=== PATIENT | female | born 1980 | race Caucasian/White ===

== ENCOUNTER 2017-06-20 11:28 | Outpatient (CLI) | payer OTHER ==
--- NOTE | 2017-06-20 14:02 | ULT ---
GALLBLADDER ULTRASOUND: Date: 06/20/17 HISTORY: Right upper quadrant pain. COMPARISON: None. TECHNIQUE: Utilizing a multihertz transducer, sonographic imaging of the right upper quadrant is performed in th e longitudinal and transverse plane. FINDINGS: Hepatic parenchyma has a normal echotexture. No hepatic masses or intrahepatic biliary dilatation. Co ntour of the hepatic margin is maintained. Right hepatic lobe measures 14.4 cm. Main portal vein is patent. Appropriate direction of flow. Common bile duct diameter is 0.2 cm. Within the lumen of the gallbladder, there are extensive echogenic foci with shadowing compatible wit h multiple gallstones. Gallbladder wall is thickened, measuring 0.5 cm. Negative Blue's sign. No si gnificant pericholecystic fluid. Right kidney has a normal cortical echotexture. No hydronephrosis. Right kidney measures 4.5 x 4.0 x 10.3 cm. IMPRESSION: Sonographic evidence of cholelithiasis with findings that are equivocal for cholecystitis. Gallbladde r wall is thickened. No pericholecystic fluid and there is a negative Blue's sign. HIDA can is salima mmended. POS: [facility]
== END 2017-06-20 11:29 | disposition home or self-care (01) ==
LOC: SCSULT 11:28
PROVIDERS: ATTEND Family Medicine
DX: R10.11 Right upper quadrant pain (principal); K82.8 Other specified diseases of gallbladder; K80.20 Calculus of gallbladder without cholecystitis without obstruction
CPT/HCPCS: 76705

== ENCOUNTER 2023-08-21 11:24 | Observation (INO) | payer BC ==
[2023-08-21] MEDS ORDERED: Calcium Carbonate 500 MG ChewTAB PO PRN (11:57)
[2023-08-21] MEDS ORDERED: Glucagon 1 MG/ML KIT IM PRN (11:57)
[2023-08-21] MEDS ORDERED: Ipratropium/Albuterol 3 ML NEB NEB PRN (11:57)
[2023-08-21] MEDS ORDERED: Mag-Al 1200 mg/1200 mg/30 ML UDCUP PO PRN (11:57)
[2023-08-21] MEDS ORDERED: Dextrose 50% Abboject 50 ML SYRINGE SLOW IVP PRN (11:57)
[2023-08-21] MEDS ORDERED: hydrALAZINE 20 MG/ML VIAL SLOW IVP PRN (11:57)
[2023-08-21] MEDS ORDERED: Ondansetron PF 4 MG/2 ML Vial IVP PRN (11:57)
[2023-08-21] MEDS ORDERED: Dextrose 5% in Water 1,000 ML IV PRN (11:57)
[2023-08-21] MEDS ORDERED: Morphine 2 MG/ML VIAL SLOW IVP PRN (11:59)
[2023-08-21] MEDS ORDERED: HYDROcodone/Acetaminophen 5/325 mg Tablet PO PRN (11:59)
[2023-08-21 12:09] VITALS: BMI 22.8
[2023-08-21] MEDS ORDERED: fentaNYL PF 100 MCG/2 ML SYRINGE ONE (12:43)
[2023-08-21] MEDS ORDERED: PROPOFOL 0 ML ONE (12:43)
[2023-08-21] MEDS ORDERED: Rocuronium Bromide 10 MG/ML (10ML VIAL) ONE (12:44)
[2023-08-21] MEDS ORDERED: Lidocaine 1% PF 5 ML VIAL ONE (12:44)
[2023-08-21] MEDS ORDERED: Bupivacaine 0.25% HCL 30 ML VIAL ONE (13:06)
[2023-08-21] MEDS ORDERED: EPINEPHrine 1 MG/ML VIAL ONE (13:06)
[2023-08-21] MEDS ORDERED: Midazolam HCl 2 mg/2 ml Vial ONE (13:22)
[2023-08-21] MEDS ORDERED: PROPOFOL 20 ML ONE (13:22)
[2023-08-21] MEDS ORDERED: Dexamethasone 20 MG/5 ML VIAL ONE (13:46)
[2023-08-21] MEDS ORDERED: PHENYLEPHRINE-NS 100 MCG/ML 10 ML SYRINGE ONE (14:00)
[2023-08-21] MEDS ORDERED: Ketorolac Tromethamine 30 MG (1 mL) VIAL ONE (14:25)
[2023-08-21] MEDS ORDERED: Ondansetron PF 4 MG/2 ML Vial ONE (14:25)
[2023-08-21] MEDS ORDERED: Lidocaine 2% 6 ML (Jelly) SYR ONE (14:26)
[2023-08-21] MEDS ORDERED: Glycopyrrolate 0.2 MG/ML 5 ML SYRINGE ONE (14:27)
[2023-08-21] MEDS ORDERED: NEOSTIGMINE 3 MG/3 ML SYR 3 MG/3 ML SYRINGE ONE (14:27)
[2023-08-21] MEDS ORDERED: Ondansetron HCl/PF 4 MG/2 ML Vial IVP PRN (14:47)
[2023-08-21] MEDS ORDERED: Promethazine HCl 25 MG/ML VIAL IM PRN (14:47)
[2023-08-21] MEDS: traMADol HCl 50 MG TAB PO PRN (15:47)
[2023-08-21] MEDS: Famotidine/PF 20 mg/2ml Vial SLOW IVP SCH (21:07)
[2023-08-21] MEDS: Famotidine 20 MG TAB PO SCH (21:09)
[2023-08-22 05:14] LABS: #Basophils 0.03 10x3/uL (0.0-0.2); #Eosinphils Less than 0.03 10x3/uL (0.0-0.7); %Basophils 0.2 % (0.0-1.0); %Eosinophils 0.1 % (0.0-10.0); %Lymphocytes 11.7 % (21.0-51.0); %Monocytes 9.5 % (0.0-10.0); Hematocrit 35.2 % (36.0-47.0); Hemoglobin 11.9 g/dL (12.0-16.0); Mean Corpuscular HGB CONC 33.8 g/dL (32.0-36.0); Mean Corpuscular Hemoglobin 29.8 pg (27.0-31.0); Mean Platelet Volume 9.4 fL (7.4-10.4); Platelet Count 273 10x3/uL (130-400); RBC Distribution Width 12.5 % (11.5-14.5)
[2023-08-22 05:44] LABS: ALT (SGPT) 47 U/L (8-55); AST (SGOT) 46 U/L (5-34); Albumin 3.4 g/dL (3.5-5.0); Alkaline Phosphatase 52 U/L (40-110); Anion Gap 13 mmol/L (10-20); BUN (Urea Nitrogen) 8 mg/dL (7.0-18.7); Bilirubin, Total 0.6 mg/dL (0.2-1.2); Calc. Creatinine Clearance 109 mL/min (70-130); Calcium 8.8 mg/dL (7.8-10.44); Carbon Dioxide 23 mmol/L (22-29); Chloride 106 mmol/L (98-107); Estimated GFR 110; Glucose 94 mg/dL (70-105); Potassium 3.6 mmol/L (3.5-5.1); Protein, Total 6.4 g/dL (6.0-8.3); Sodium 138 mmol/L (136-145)
[2023-08-22] MEDS: Acetaminophen 325 MG TAB PO PRN (06:16)
[2023-08-22 08:52] VITALS: BP 112/72; TEMP 97.5
== END 2023-08-22 10:35 | disposition home or self-care (01) ==
LOC: SURG B 11:24 → INTOOBSV 11:24
PROVIDERS: ADMIT Surgery; ATTEND Surgery
PROC: 0FT44ZZ Resection of Gallbladder, Percutaneous Endoscopic Approach (ICD-10-PCS; principal; 2023-08-22)
DX: K80.10 Calculus of gallbladder with chronic cholecystitis without obstruction (principal)
CPT/HCPCS: 36415; 80053; 85025; 88304; C1713; G0378; J0171; J0665; J1100; J1885; J2250; J2405; J2704